=== PATIENT | female | born 1995 | race Two or more races ===

== ENCOUNTER 2018-10-14 10:45 | Observation (INO) | payer MEDICAID ==
[2018-10-14] MEDS ORDERED: PREN-153 PO (11:28)
== END 2018-10-14 11:45 | disposition home or self-care (01) | DRG 566 ==
LOC: LDRP 10:45
PROVIDERS: ADMIT Specialist; ATTEND Specialist
DX: O24.419 Gestational diabetes mellitus in pregnancy, unspecified control (principal); O26.893 Other specified pregnancy related conditions, third trimester; N89.8 Other specified noninflammatory disorders of vagina; Z3A.36 36 weeks gestation of pregnancy
CPT/HCPCS: 59025; 76818; 81002; 82948; 82962; G0378